=== PATIENT | male | born 1950 | race Caucasian/White ===

== ENCOUNTER 2023-01-29 13:25 | Emergency (ER) | payer MEDICARE, OTHER ==
[~2023-01-29] VITALS: Ht 177.8 cm; Wt 136.0 kg
[~2023-01-29 13:25] MED LIST: CARV25TA55 PO; FENO160T PO; FURO40TA4 PO; HYDR500T13 PO; LEVO500I7 IV; LISI20TA56 PO; MELO-335 PO; MORP30CA31 PO; OXYC-589 PO; SPIR25TA8 PO; VARD20TA PO
[2023-01-29] MEDS ORDERED: FUROSEMIDE 40 MG/4 ML VIAL IV ONE (14:15)
[2023-01-29 14:20] VITALS: PULSE 109; RESP 20; O2SAT 97
[2023-01-29 14:44] LABS: Basophils # (auto) 0.1 10 ^3/uL (0-0.2); Basophils % (auto) 0.7 % (0.0-2.0); Hematocrit 33.9 % (41.0-53.0); Hemoglobin 10.5 g/dL (13.5-17.5); Lymphocytes # (auto) 1.4 10 ^3/uL (0.4-5.4); Nucleated Red Blood Cells % 0.2 %
[2023-01-29 14:45] LABS: Eosinophils # (auto) 0.2 10 ^3/uL (0-0.8); Eosinophils % (auto) 1.8 % (0.0-7.0); Lymphocytes % (auto) 10.8 % (10.0-50.0); Mean Corpuscular Hemoglobin 23.9 pg (28.0-32.0); Mean Corpuscular Hgb Conc. 30.9 g/dL (32.0-36.0); Mean Corpuscular Volume 77.3 fL (80.0-100.0); Monocytes % (auto) 7.4 % (0.0-12.0); Neutrophils # (auto) 10.3 10 ^3/uL (1.6-8.6); Neutrophils % (auto) 79.3 % (37.0-80.0); Red Blood Cells 4.39 10^6/uL (4.5-5.90); Red Cell Distribution Width 19.5 % (11.8-14.3)
[2023-01-29 15:04] LABS: Albumin 3.3 g/dL (3.4-5.0); Calcium 8.3 mg/dL (8.5-10.1); Potassium 3.8 mmol/L (3.5-5.1)
[2023-01-29 15:10] LABS: BUN/Creatinine Ratio 21.3 (10.0-20.0); Bilirubin, Total 0.4 mg/dL (0.2-1.0); Total Protein 6.4 g/dL (6.4-8.2)
[2023-01-29 17:35] LABS: Urine Bacteria FEW /hpf (None Seen); Urine Blood Negative /uL (Negative); Urine Clarity Clear (Clear); Urine Color Colorless (Yellow); Urine Protein, UAD Negative (Negative); Urine Specific Gravity 1.005 (1.001-1.035); Urine Urobilinogen Normal (Negative); Urine WBC 40 /hpf (0 - 3)
[2023-01-29 18:22] LABS: COVID19 ANTIGEN SOFIA FIA NEGATIVE (NEGATIVE)
[2023-01-29 19:30] VITALS: PULSE 110; RESP 26; O2SAT 96
[2023-01-29] MEDS ORDERED: PIPERACILLIN-TAZOB 3.375GM 100 ML IV ONE (21:00)
[2023-01-29 21:46] VITALS: BP 141/56; PULSE 114; RESP 15; TEMP 98.2; O2SAT 96
== END 2023-01-29 22:07 | disposition short-term general hospital (02) ==
LOC: EDBD 13:25 → ER 13:25
DX: J96.00 Acute respiratory failure, unspecified whether with hypoxia or hypercapnia (principal); R60.0 Localized edema; R79.1 Abnormal coagulation profile; I11.0 Hypertensive heart disease with heart failure; I50.9 Heart failure, unspecified; E11.9 Type 2 diabetes mellitus without complications; E78.5 Hyperlipidemia, unspecified; Z90.49 Acquired absence of other specified parts of digestive tract; Z87.891 Personal history of nicotine dependence; Z79.899 Other long term (current) drug therapy; Z88.5 Allergy status to narcotic agent; Z88.8 Allergy status to other drugs, medicaments and biological substances; Z20.822 Contact with and (suspected) exposure to COVID-19
CPT/HCPCS: 36415; 71045; 71275; 80053; 81001; 83605; 83735; 83880; 84484; 85025; 85379; 87040; 87426; 93005; 93970; 96374; 99291; J1940; Q9967